=== PATIENT | female | born 1950 | race Caucasian/White ===

== ENCOUNTER 2019-01-22 18:10 | Emergency (ER) | payer MEDICARE, BC ==
--- OUTSIDE RECORDS SUMMARY | 2019-01-22 18:17 | XMS REPORT | Continuity of Care Document ---
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 Tablets ER 24HR Atorvastatin Calcium take 1 tablet 90tabs Em Wooten, 10mg Tablets by mouth every NIPPING MACHINE OPERATOR day Hydrochlorothiazide take 1 capsule 90caps Em Wooten, 12.5mg every day NIPPING MACHINE OPERATOR Capsules Valsartan take 1 tablet 180tabs Em Wooten, 160mg Tablets twice a day NIPPING MACHINE OPERATOR Metoprolol Tartrate take 1 tablet 180tabs Em Je, 25mg Tablets twice a day NIPPING MACHINE OPERATOR Glipizide ER take 1 tablet 90tabs Em Wooten, 10mg Tablets ER 24HR twice a day NIPPING MACHINE OPERATOR Tramadol HCL ER take 1 tablet 30tabs Em Wooten, 100mg Tablets ER by mouth every NIPPING MACHINE OPERATOR 24HR day Slow Magnesium Chloride/ Take 2 Tablets Unknown Calcium By Mouth Every 70-117mg Tablets DR Day Ferrous Gluconate Take 1 Tablet Unknown 324(38Fe) mg By Mouth Twice Tablets A Day With Food History Medications Metformin HCL Take 1 Tablet Twice A Unknown - 06/30/2018 500mg Tablets Day Celecoxib Take One Capsule Twice Unknown - 09/01/2018 100mg Capsules A Day Immunizations CPT Code Status Date Vaccine Lot # [id number] Given 09/25/2008 Td Age 7 to adult (Tenivac, Decavac, [employer]) Vital Signs Date Vital Result Comment 01/03/2019 8:53am Weight 207.00 lb Weight 93.895 kg BP Systolic 148 mmHg BP Diastolic 74 mmHg Heart Rate 70 /min Body Temperature 98.2 F Respiratory Rate 16 /min O2 % BldC Oximetry 99 % 10/04/2018 8:50am Weight 207.00 lb Weight 93.895 kg BP Systolic 140 mmHg BP Diastolic 78 mmHg Heart Rate 74 /min Body Temperature 97.4 F Respiratory Rate 16 /min 06/29/2018 1:11pm Weight 204.00 lb Weight 92.534 kg BP Systolic 142 mmHg BP Diastolic 80 mmHg Heart Rate 76 /min Body Temperature 98.6 F Respiratory Rate 16 /min Height 68 inches 5'8" BMI (Body Mass Index) 31.0 kg/m2 Results Test Date Facility Test Result H/L Range Note Laboratory test In House Lab Hemoglobin A1c <pending> finding 9 [phone] - Poct Laboratory test [facility] Miscellaneous Test <pending> finding 9 [phone] Laboratory test In House Lab Hemoglobin A1c 6.5 finding 9 [phone] - Poct CBC Auto Diff [facility] White Blood Count 8.5 N 3.5-10.8 8 [phone] 10^3/uL Red Blood Count 4.38 10^6/uL N 4.00-5.40 Hemoglobin 12.5 g/dL N 12.0-16.0 Hematocrit 38 % N 35-47 Mean Corpuscular Volume 86 fL N 80-97 Mean Corpuscular Hemoglobin 29 pg N 27-31 Mean Corpuscular HGB Conc 34 g/dL N 31-36 Red Cell Distribution Width 14 % N 10.5-15 Platelet Count 265 10^3/uL N 150-450 Mean Platelet Volume 8.9 um3 N 7.4-10.4 Abs Neutrophils 4.2 10^3/uL N 1.5-7.7 Abs Lymphocytes 3.6 10^3/uL N 1.0-4.8 Abs Monocytes 0.5 10^3/uL N 0-0.8 Abs Eosinophils 0.1 10^3/uL N 0-0.6 Abs Basophils 0.1 10^3/uL N 0-0.2 Abs Nucleated RBC 0 10^3/uL Granulocyte % 49.7 % N 38-83 Lymphocyte % 42.1 % N 25-47 Monocyte % 6.0 % N 0-7 Eosinophil % 1.6 % N 0-6 Basophil % 0.6 % N 0-2 Nucleated Red Blood Cells % 0.1 Comp Metabolic Panel 06/29/2018 [facility] Sodium 136 mmol/L N 135-145 [phone] Potassium 4.8 mmol/L N 3.5-5.0 Chloride 100 mmol/L Low 101-111 Co2 Carbon Dioxide 28 mmol/L N 22-32 Anion Gap 8 mmol/L N 2-11 Glucose 200 mg/dL High 70-100 Blood Urea Nitrogen 23 mg/dL N 6-24 Creatinine 1.34 mg/dL High 0.51-0.95 BUN/Creatinine Ratio 17.2 N 8-20 Calcium 9.7 mg/dL N 8.6-10.3 Total Protein 7.1 g/dL N 6.4-8.9 Albumin 4.5 g/dL N 3.2-5.2 Globulin 2.6 g/dL N 2-4 Albumin/Globulin Ratio 1.7 N 1-3 Total Bilirubin 0.40 mg/dL N 0.2-1.0 Alkaline Phosphatase 93 U/L N 34-104 Alt 20 U/L N 7-52 Ast 22 U/L N 13-39 Egfr Non- 39.6 >60 Egfr 47.9 >60 1 Laboratory test 06/29/2018 [facility] Hemoglobin A1c 7.4 % High 4.0-5.6 2 finding [phone] (Glyco HGB) 1 Because ethnic data is not always readily available, this report includes an eGFR for both -Americans and non- Americans. The National Kidney Disease Education Program (NKDEP) does not endorse the use of the MDRD equation for patients that are not between the ages of 18 and 70, are , have extremes of body size, muscle mass, or nutritional status, or are non- or non-. According to the National Kidney Foundation, irrespective of diagnosis, the stage of the disease is based on the level of kidney function: Stage Description GFR(mL/min/1.73 m(2)) 1 Kidney damage with normal or decreased GFR 90 2 Kidney damage with mild decrease in GFR 60-89 3 Moderate decrease in GFR 30-59 4 Severe decrease in GFR 15-29 5 Kidney failure <15 (or dialysis) 2 Therapeutic target for the treatment of diabetes mellitus patients is <7% HBA1C, and in selective patients <6.0%. Please refer to [place] [employer] diabetic care guidelines for further information. 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
[2019-01-22 18:33] VITALS: BP 159/85
--- NOTE | 2019-01-22 18:39 | UC ---
Lower Extremity/Ankle HPI - HPI Summary HPI Summary: right foot pain great toe pain and swelling hurts to move mtp joint--no injury - History of Current Complaint Chief Complaint: UCLowerExtremity Stated Complaint: FOOT PAIN Time Seen by Provider: 01/22/19 18:23 Hx Obtained From: Patient ?: No Onset/Duration: Gradual Onset, Lasting Days, Still Present Pain Intensity: 8 Pain Scale Used: 0-10 Numeric Aggravating Factor(s): Standing, Ambulation Alleviating Factor(s): Rest, Elevation Able to Bear Weight: Yes - Allergies/Home Medications Allergies/Adverse Reactions: Allergies Allergy/AdvReac Type Severity Reaction Status Date / Time Opioids - Morphine Analogues Allergy Altered Verified 01/22/19 18:33 Mental Status PMH/Surg Hx/FS Hx/Imm Hx Endocrine History: Diabetes, Dyslipidemia Cardiovascular History: Hypertension - Surgical History Surgical History: Yes Surgery Procedure, Year, and Place: parathyroidectomy - Family History Known Family History: Positive: None - Social History Occupation: Retired Lives: With Family Alcohol Use: None Substance Use Type: None Smoking Status (MU): Never Smoked Tobacco Review of Systems All Other Systems Reviewed And Are Negative: Yes Constitutional: Positive: Negative Skin: Positive: Negative Eyes: Positive: Negative ENT: Positive: Negative Respiratory: Positive: Negative Cardiovascular: Positive: Negative Gastrointestinal: Positive: Negative Genitourinary: Positive: Negative Motor: Positive: Decreased ROM - right great toe Neurovascular: Positive: Negative Musculoskeletal: Positive: Arthralgia - right great toe Neurological: Positive: Negative Psychological: Positive: Negative Is Patient Immunocompromised?: No Physical Exam Triage Information Reviewed: Yes Appearance: Well-Appearing, Well-Nourished, Pain Distress - mid Vital Signs: Initial Vital Signs Temp 99.1 F 01/22/19 18:26 Pulse 84 01/22/19 18:26 Resp 20 01/22/19 18:26 BP 159/85 01/22/19 18:26 Pulse Ox 95 01/22/19 18:26 Vital Signs Reviewed: Yes Eye Exam: Normal Eyes: Positive: Conjunctiva Clear ENT Exam: Normal ENT: Positive: Normal ENT inspection, Hearing grossly normal. Negative: Trismus , Muffled voice, Hoarse voice Dental Exam: Normal Neck exam: Normal Neck: Positive: Supple, Nontender Respiratory Exam: Normal Respiratory: Positive: Chest non-tender, No respiratory distress, No accessory muscle use Cardiovascular Exam: Normal Cardiovascular: Positive: RRR, Pulses Normal, Brisk Capillary Refill Musculoskeletal Exam: Other Musculoskeletal: Positive: Strength Limited @ - right great toe, Edema @ - right great toe Neurological Exam: Normal Neurological: Positive: Alert, Muscle Tone Normal Psychological Exam: Normal Skin Exam: Normal Lower Extremity Course/Dx - Course Course Of Treatment: labs---increase ultram follow with pcp this week - Differential Dx/Diagnosis Provider Diagnosis: Gout attack Discharge - Sign-Out/Discharge Documenting (check all that apply): Patient Departure All imaging exams completed and their final reports reviewed: No Studies - Discharge Plan Condition: Stable Disposition: HOME Prescriptions: Tramadol HCl [Ultram] 50 mg PO DAILY PRN #15 tablet MDD 1 PRN Reason: Pain Patient Education Materials: Low Purine Diet (ED), Gout (ED), Hypertension (ED) Referrals: Em Wooten NP [Primary Care Provider] - 5 Days - Billing Disposition and Condition Condition: STABLE Disposition: Home
[2019-01-23 12:38] LABS: C Reactive Protein 20.67 mg/L (<8.01); Uric Acid 7.8 mg/dL (2.3-6.6)
--- NOTE | 2019-01-23 16:06 | UC ---
- Progress Note Progress Note: 01/23/2019 Uric acid: 7.8 High CRP: 20.67 High Pt Dx W/ gout exacerbation. Pt Rx Ultram PO 500mg Please call back patient and inform her of result and advised to f/u w/ her PCP in 1-2 days for further management on her gout Thank you Socorro BLACK Course/Dx - Diagnoses Provider Diagnoses: Gout attack Discharge - Sign-Out/Discharge Documenting (check all that apply): Post-Discharge Follow Up All imaging exams completed and their final reports reviewed: No Studies - Discharge Plan Condition: Stable Disposition: HOME Prescriptions: Tramadol HCl [Ultram] 50 mg PO DAILY PRN #15 tablet MDD 1 PRN Reason: Pain Patient Education Materials: Low Purine Diet (ED), Gout (ED), Hypertension (ED) Referrals: Em Wooten AIRPORT PLANNER [Primary Care Provider] - 5 Days - Billing Disposition and Condition Condition: STABLE Disposition: Home - Attestation Statements Provider Attestation: I was available for consult. This patient was seen by the [facility]. The patient was not presented to, seen by, or examined by me. -Lei
== END 2019-01-22 18:55 | disposition home or self-care (01) ==
LOC: UCEAST 18:10
DX: M10.9 Gout, unspecified (principal); E11.9 Type 2 diabetes mellitus without complications; E78.5 Hyperlipidemia, unspecified; I10 Essential (primary) hypertension; Z88.5 Allergy status to narcotic agent
CPT/HCPCS: 36415; 84550; 86140; 99212; G0463